=== PATIENT | female | born 1955 | race Caucasian/White ===

== ENCOUNTER 2023-12-16 15:12 | Emergency (ER) | payer MEDICARE, SELFPAY ==
[2023-12-16 15:23] VITALS: BP 144/76; PULSE 109; RESP 16; TEMP 37.4; O2SAT 97
[2023-12-16 15:28] VITALS: BP 144/76; PULSE 109; RESP 16; TEMP 37.4; O2SAT 97
--- NOTE | 2023-12-16 15:47 | ED.GENADULT ---
HPI - General Adult General Chief complaint: Dental/Oral Stated complaint: Face Swelling Time Seen by Provider: 12/16/23 15:28 Source: patient and RN notes reviewed Mode of arrival: ambulatory Limitations: no limitations History of Present Illness HPI narrative: Patient presents today with a 7-10 day pain in the left upper jaw line with facial swelling for the past 2 days. Denies any additional symptoms to include fever, congestion, cough. She has been chewing on the right side of her mouth for fear of tooth pain but cannot localize tooth pain. She currently rates her pain 5/10 and has been taking Aleve with mild relief. Related Data Home Medications Medication Instructions Recorded Confirmed lisinopril 10 mg tablet 10 mg PO DAILY 12/16/23 12/16/23 Allergies Allergy/AdvReac Type Severity Reaction Status Date / Time No Known Allergies Allergy Unverified 12/16/23 15:22 Review of Systems Review of Systems: CONSTITUTIONAL: Denies body aches, fever, chills, or sweats. EYES: Denies visual changes, redness, or discharge. ENT: Denies rhinorrhea, congestion, sore throat, or otalgia. Left facial pain and swelling CARDIOVASCULAR: Denies chest pain, palpitations, or edema. RESPIRATORY: Denies cough or dyspnea. GASTROINTESTINAL: Denies abdominal pain, nausea, vomiting, or diarrhea. GENITOURINARY: Denies dysuria or hematuria. SKIN: Denies rash, itching, or wounds. MUSCULOSKELETAL: Denies back pain, joint pain, or myalgia. NEUROLOGIC: Denies headache, numbness, tingling, or weakness. PSYCH: Denies depression or anxiety. [facility] Past Medical History Medical History (Updated 12/16/23 @ 15:54 by Meka Wolf, SONALI, ) Breast cancer Family History Family History Father Hypertension Mother Hypertension Social History Social History (Updated 12/16/23 @ 15:50 by Meka Wolf, SONALI, ) Smoking status: Current every day smoker Tobacco type: cigarettes Second hand tobacco smoke exposure: No Alcohol intake: current Exam Narrative: GENERAL: Well-appearing, well-nourished, and in no acute distress. HEAD: Normocephalic, atraumatic. EYES: EOMI. No redness or drainage. Conjunctivae normal. ENT: Mucous membranes pink and moist. Nares clear. No rhinorrhea. Throat normal. Uvula midline. Tenderness to teeth 11 and 12 as well as adjacent gumline. This area of gumline is also dark in color. Left upper jawline swelling. No trismus. NECK: Normal AROM. Supple. No lymphadenopathy. CHEST: No respiratory distress. EXTREMITIES: Normal range of motion. No edema. SKIN: Warm, dry, no rash. Capillary refill normal. Normal skin turgor. NEURO: No focal deficits. Alert and oriented x3. Gait steady. PSYCH: Normal affect. No signs of depression or anxiety. Course Course Level of Care: Express Care Visit Vital Signs Vital signs: Vital Signs Temperature 99.4 F 12/16/23 15:23 Pulse Rate 109 H 12/16/23 15:23 Respiratory Rate 16 12/16/23 15:23 Blood Pressure 144/76 H 12/16/23 15:23 Pulse Oximetry 97 12/16/23 15:23 Oxygen Delivery Autopap 12/16/23 15:23 Temperature 99.4 F 12/16/23 15:28 Pulse Rate 109 H 12/16/23 15:28 Respiratory Rate 16 12/16/23 15:28 Blood Pressure 144/76 H 12/16/23 15:28 Pulse Oximetry 97 12/16/23 15:28 Oxygen Delivery Autopap 12/16/23 15:28 Reviewed Medical Decision Making MDM Narrative Medical decision making narrative: Patient will be treated for presumed dental infection with Augmentin, and prednisone for facial swelling. She will keep her appointment with her dentist that is scheduled in approximately 2 weeks. Anticipatory guidance given. Differential Diagnosis Differential Diagnosis: Dental abscess, fracture, infected dental caries Vital Signs Vital Signs: Vital Signs Temperature 99.4 F 12/16/23 15:23 Pulse Rate 109 H 12/16/23 15:23 Respiratory Rate 16
== END 2023-12-16 16:00 | disposition home or self-care (01) ==
PROVIDERS: Emergency Provider Nurse Practitioner
DX: K04.7 Periapical abscess without sinus (principal); F17.210 Nicotine dependence, cigarettes, uncomplicated; Z85.3 Personal history of malignant neoplasm of breast
CPT/HCPCS: 99213; G0463